=== PATIENT | male | born 1970 | race Caucasian/White ===

== ENCOUNTER 2019-12-18 07:07 | Day surgery (SDC) | payer OTHER ==
[~2019-12-18] VITALS: Ht 188 cm; Wt 103.4 kg
--- NOTE | 2019-12-18 08:46 | NUR ---
12/18/19 0846 Beverly Fischer 0893-PATIENT ARRIVED TO PACU ON 2L NC AWAKE DENIES PAIN OR NAUSEA. LAYING LEFT LATERAL. HOB ELEVATED PATIENT REPOSITIONS SELF, ABDOMEN SOFT ENCOURAGED TO PASS GAS. IVF INFUSING.
--- NOTE | 2019-12-18 09:34 | OR ---
[facility] [address], [place] [address] Signed DATE OF OPERATION: 12/18/2019 SURGEON: Blair Aguirre MD PREOPERATIVE DIAGNOSIS: Screening. POSTOPERATIVE DIAGNOSES: 1. Minimal sigmoid diverticulosis. 2. Minimal internal hemorrhoids. PROCEDURE: Colonoscopy without biopsy. ESTIMATED BLOOD LOSS: None. INDICATIONS: Trent is a 49-year-old gentleman, whom I asked to see me for his initial screening colonoscopy. He has no lower GI complaints. There is no family history of colon cancer or polyps. In the office, I gave Trent a pamphlet on colonoscopy. We reviewed the nature of the test along with the risks including, but not limited to gas bloating, crampy abdominal pain, bleeding, perforation requiring surgery, and missed diagnosis. We also discussed the need for IV conscious sedation. He had expressed understanding and wished to proceed. PROCEDURE NOTE: Trent was taken into our endoscopy suite and placed in the left lateral decubitus position. He was given 9 mg of Versed and 150 mcg of fentanyl to cover the case. A digital rectal exam was performed and he does have a moderately enlarged indurated prostate gland. The adult colonoscope was then introduced and advanced under direct visualization into the cecum itself. It took some extra sedation and abdominal compression in order to advance the scope into the cecum itself. His prep was quite good. We could easily see the appendiceal orifice and the ileocecal valve. The scope was slowly withdrawn. We took pictures throughout for photodocumentation. He had just a few tiny diverticula in the sigmoid colon. They were quite small, few in number and scattered about. There were no polyps. The rectum was unremarkable. Upon retroflexion of scope, he has very tiny routine internal hemorrhoid tissue. After this, the gas was suctioned out. The colonoscope removed. Trent tolerated the procedure quite well. Electronically Signed By: BLAIR AGUIRRE MD 12/18/19 0934 PATIENT NAME: CARLOS SILVESTRE OPERATIVE REPORT DATE OF : 66 REPORT #: [id number] PHYSICIAN: BLAIR AGUIRRE MD PCP: TILA PRICE MD REPORT IS CONFIDENTIAL AND NOT TO BE RELEASED WITHOUT AUTHORIZATION [address] [place], [place] [address] Signed RECOMMENDATIONS: Trent can follow up in 10 years for repeat colonoscopy. Blair Aguirre MD ALB/MODL /[id number] cc: MD Blair Henley MD Copies: TILA PRICE MD, ANDREW L MD ~ Electronically Signed By: BLAIR AGUIRRE MD 12/18/19 0934 PATIENT NAME: CARLOS SILVESTRE OPERATIVE REPORT DATE OF : 66 REPORT #: [id number] PHYSICIAN: BLAIR AGUIRRE MD PCP: TILA PRICE MD REPORT IS CONFIDENTIAL AND NOT TO BE RELEASED WITHOUT AUTHORIZATION
--- NOTE | 2019-12-18 11:16 | NUR ---
PT ALERT, ORIENTED AND IN FOR HIS FIRST ROUTINE SCOPE. PREP SEEMS TO HAVE BEEN A CHALLENGE, BUT HE IS WORKING TO STAY POSITIVE. GAVE ENCOURAGEMENT. ALL QUESTIONS ASKED, ANSWERED. MIGNON BRAN IN TO TAKE PT. GAVE BLESSING WILL FOLLOW
== END 2019-12-18 09:22 | disposition home or self-care (01) ==
LOC: DS 07:07 → OPS 07:07 → DS 08:15 → OPS 09:22
PROVIDERS: Colon & Rectal Surgery
PROC: 0DJD8ZZ Inspection of Lower Intestinal Tract, Via Natural or Artificial Opening Endoscopic (ICD-10-PCS; principal; 2019-12-18 08:15)
DX: Z12.11 Encounter for screening for malignant neoplasm of colon (principal); K64.8 Other hemorrhoids; K57.30 Diverticulosis of large intestine without perforation or abscess without bleeding
CPT/HCPCS: 99153; G0500; J2250; J3010; J7121